=== PATIENT | female | born 1945 | race Caucasian/White ===

== ENCOUNTER 2020-05-05 08:56 | Outpatient (REF) | payer MEDICARE, SELFPAY ==
--- NOTE | 2020-05-05 09:01 | MM_ITS ---
EXAMINATION: MM SCREENING DIGITAL BREAST TOMOSYNTHESIS, BILATERAL CLINICAL INFORMATION: Screening. Asymptomatic. The lifetime risk of breast cancer based on the Tyrer-Cuzick Model is 4%. COMPARISON: Mammography: 01/31/2019, 01/04/2018, 01/02/2017 TECHNIQUE: Digital breast tomosynthesis is performed in both the craniocaudal and mediolateral oblique views along with computer-aided detection (CAD). Synthesized 2D images are generated from the tomosynthesis. Additional right CC view is provided. FINDINGS: There are scattered areas of fibroglandular density (ACR BI-RADS breast composition Category b). Parenchymal pattern is similar to prior exams and there is no developing density or interval mass or architectural abnormality. Again, there are scattered bilateral benign round and rim calcifications. The axilla and skin contours are unremarkable. The left breast has increased focal grouped calcifications mid upper outer quadrant when compared with prior study. Patient will be recalled for additional magnification views to fully characterize. MM/MM tomosynthesis screening BI IMPRESSION: 1. Left: Increased grouped calcifications mid upper outer quadrant. 2. Right: No mammographic evidence of malignancy. ASSESSMENT: BI-RADS 0: Incomplete - Need Additional Imaging Evaluation RECOMMENDATION: 1. Additional views of the left breast (magnification CC, magnification ML). 2. Radiology department staff will contact the patient for additional imaging. This patient's information was entered into a reminder system with a target due date for their next mammogram.
== END 2020-05-05 08:57 | disposition home or self-care (01) ==
LOC: HO.MAMMO 08:56
PROVIDERS: PCP Internal Medicine; Visit Provider Internal Medicine
DX: Z12.31 Encounter for screening mammogram for malignant neoplasm of breast (principal)
CPT/HCPCS: 77063; 77067

== ENCOUNTER 2020-05-28 10:59 | Outpatient (REF) | payer MEDICARE, SELFPAY ==
--- NOTE | 2020-05-28 | MM_ITS ---
EXAMINATION: MM DIAGNOSTIC DIGITAL MAMMOGRAPHY, LEFT CLINICAL INFORMATION: Left breast calcifications. COMPARISON: Mammography: 05/05/2020 and studies dating back to 05/20/2011. TECHNIQUE: Digital mammography is performed in the following views: Spot magnification craniocaudal and 90-degree mediolateral views. FINDINGS: There are scattered areas of fibroglandular density (ACR BI-RADS breast composition Category b). Within the upper outer aspect of the left breast, approximately 8 cm from the nipple, there is an indeterminate grouping of increasing calcifications for which stereotactic core biopsy is recommended. Results are discussed with the patient at time of visit. Breast Center navigator called above recommendation to referring provider's office. MM/MM added views LT IMPRESSION: Indeterminate calcifications upper outer aspect of the left breast for which stereotactic core biopsy is recommended. ASSESSMENT: BI-RADS 4: Suspicious RECOMMENDATION: Stereotactic core biopsy left breast calcifications.
== END 2020-05-28 11:00 | disposition home or self-care (01) ==
LOC: HO.MAMMO 10:59
PROVIDERS: Visit Provider Internal Medicine
DX: R92.1 Mammographic calcification found on diagnostic imaging of breast (principal)
CPT/HCPCS: 77065

== ENCOUNTER 2020-06-09 07:55 | Outpatient (REF) | payer MEDICARE, SELFPAY ==
--- NOTE | 2020-06-09 07:59 | MM_ITS ---
EXAMINATION: STEREOTACTIC TOMOSYNTHESIS-GUIDED VACUUM-ASSISTED BREAST BIOPSY, LEFT SPECIMEN RADIOGRAPH, LEFT POST PROCEDURE DIGITAL MAMMOGRAM, LEFT CLINICAL INFORMATION: Grouped coarse heterogeneous calcifications posterior upper outer left breast. COMPARISON: Mammography 05/05/2020, 05/28/2020. TECHNIQUE/PROCEDURE: Informed consent was obtained from the patient after discussion of the benefits, risks, and alternatives to biopsy today. Patient appeared to understand. Gave opportunity for questions. Patient signed consent form. BIOPSY TABLE: [employer]one Biopsy System. LESION: Heterogeneous coarse calcifications posterior upper outer left breast. LOCAL ANESTHESIA: 6 mL 1% lidocaine; 10 mL 1% lidocaine with epinephrine. DERMATOTOMY: Single skin malcolm dermatotomy performed. NEEDLE: [employer] 9-gauge vacuum assisted core biopsy device. APPROACH: lateral medial. TARGETING: Digital breast tomosynthesis used for targeting. CORES: 6. CLIP: [place] [employer] T-shaped marker. SPECIMEN RADIOGRAPH: Specimen radiograph is taken in separate room using digital mammography. The index calcifications are in the excised cores. There are numerous calcifications in the cores. POST PROCEDURE UNILATERAL DIGITAL MAMMOGRAM: The post biopsy mammogram is performed in separate room using separate digital mammography equipment from the biopsy procedure. CC and ML views are obtained. There are scattered areas of fibroglandular density (breast composition category: b). The clip marker is in position on the ML view and likely 1 cm deep to the biopsy cavity on CC view. One remaining calcification is seen in area biopsy cavity. The patient tolerated the procedure well. No immediate complications. Home instructions reviewed with the patient. Final pathology results are pending. MM/MM stereotactic biopsy LT IMPRESSION: 1. Digital tomosynthesis-guided core biopsy left breast with clip placement. 2. Specimen radiograph taken and post procedure mammogram. Biopsy clip marker is 1 cm deep to the biopsy cavity on CC view. 3. Final pathology results pending. An addendum report will be issued.
== END 2020-06-09 07:56 | disposition home or self-care (01) ==
LOC: HO.MAMMO 07:55
PROVIDERS: PCP Internal Medicine; Visit Provider Internal Medicine
DX: R92.0 Mammographic microcalcification found on diagnostic imaging of breast (principal)
CPT/HCPCS: 19081; 88305

== ENCOUNTER 2020-11-26 13:00 | Outpatient (REF) | payer MEDICARE, SELFPAY ==
--- NOTE | ~2020-11-26 | MM_ITS ---
EXAMINATION: MM DIAGNOSTIC DIGITAL BREAST TOMOSYNTHESIS, LEFT CLINICAL INFORMATION: Benign left stereotactic biopsy 06/09/2020 (Benign breast parenchyma with fibrocystic changes, fibroadenomatoid change, and scattered coarse calcifications. Negative for atypia, hyperplasia, and carcinoma). The lifetime risk of breast cancer based on the Tyrer-Cuzick Model is 4%. COMPARISON: Mammography: 06/09/2020, 05/28/2020, 05/05/2020 TECHNIQUE: Digital breast tomosynthesis is performed in both the craniocaudal and mediolateral oblique views along with computer-aided detection (CAD). Synthesized 2D images are generated from the tomosynthesis. FINDINGS: There are scattered areas of fibroglandular density (ACR BI-RADS breast composition Category b). There are no significant masses, abnormal calcifications, or other abnormalities. There is biopsy clip marker mid upper outer left breast. No residual grouped calcifications. There are scattered background benign round calcifications of the left breast again noted. Results are provided to the patient at time of visit by the technologist. MM/MM tomosynthesis diagnostic LT IMPRESSION: No mammographic evidence of malignancy. ASSESSMENT: BI-RADS 2: Benign RECOMMENDATION: Routine annual mammography screening. This patient's information was entered into a reminder system with a target due date for their next mammogram.
== END 2020-11-26 13:01 | disposition home or self-care (01) ==
LOC: HO.MAMMO 13:00
PROVIDERS: PCP Internal Medicine; Visit Provider Internal Medicine
DX: R92.1 Mammographic calcification found on diagnostic imaging of breast (principal)
CPT/HCPCS: 77061; 77065

== ENCOUNTER 2021-01-21 09:51 | Outpatient (REF) | payer MEDICARE, SELFPAY ==
--- NOTE | 2021-01-21 10:01 | EMG_ITS ---
Bilateral tibial and peroneal motor studies were performed. Bilateral superficial peroneal and sural sensory studies were performed. Tibial H reflexes were obtained and paraspinal muscles were tested. 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 MD KEVIN Burgos/CHRISTOPHERL / [id number]
== END 2021-01-21 09:52 | disposition home or self-care (01) ==
LOC: HO.NEURO 09:51
PROVIDERS: Visit Provider Internal Medicine
DX: R20.2 Paresthesia of skin (principal)
CPT/HCPCS: 95886; 95911

== ENCOUNTER 2022-07-15 08:50 | Outpatient (REF) | payer MEDICARE, SELFPAY ==
--- NOTE | ~2022-07-15 | MM_ITS ---
EXAMINATION: MM SCREENING DIGITAL BREAST TOMOSYNTHESIS, BILATERAL CLINICAL INFORMATION: Screening. Asymptomatic. Benign left stereotactic biopsy 06/09/2020 (benign breast parenchyma with fibrocystic changes, fibroadenomatoid change, and scattered coarse calcifications. Negative for atypia, hyperplasia, and carcinoma). The lifetime risk of breast cancer based on the Tyrer-Cuzick Model is 3%. COMPARISON: Mammography: 11/26/2020, 06/09/2020, 05/28/2020, 05/05/2020, 01/31/2019 TECHNIQUE: Digital breast tomosynthesis is performed in both the craniocaudal and mediolateral oblique views along with computer-aided detection (CAD). Synthesized 2D images are generated from the tomosynthesis. FINDINGS: There are scattered areas of fibroglandular density (ACR BI-RADS breast composition Category b). There are no significant masses, abnormal calcifications, or other abnormalities. There is biopsy clip marker mid upper outer left breast. The grouped calcifications in this area are no longer demonstrated. There are other scattered benign isolated round and rim calcifications breast again noted. The axilla and skin contours are unremarkable. MM/MM tomosynthesis screening BI IMPRESSION: No mammographic evidence of malignancy. ASSESSMENT: BI-RADS 2: Benign RECOMMENDATION: Routine annual mammography screening. This patient's information was entered into a reminder system with a target due date for their next mammogram.
== END 2022-07-15 08:51 | disposition home or self-care (01) ==
LOC: HO.MAMMO 08:50
PROVIDERS: PCP Internal Medicine; Visit Provider Internal Medicine
DX: Z12.31 Encounter for screening mammogram for malignant neoplasm of breast (principal)
CPT/HCPCS: 77063; 77067

== ENCOUNTER 2023-07-19 08:55 | Outpatient (REF) | payer MEDICARE, SELFPAY ==
--- NOTE | ~2023-07-19 | MM_ITS ---
EXAMINATION: MM SCREENING DIGITAL BREAST TOMOSYNTHESIS, BILATERAL CLINICAL INFORMATION: Screening. Asymptomatic. COMPARISON: Mammography: This study is compared with prior exams dating back to 2019. TECHNIQUE: Digital breast tomosynthesis is performed in both the craniocaudal and mediolateral oblique views along with computer-aided detection (CAD). Synthesized 2D images are generated from the tomosynthesis. FINDINGS: There are scattered areas of fibroglandular density (ACR BI-RADS breast composition Category b). There are no significant masses, abnormal calcifications, or other abnormalities. There is a tissue marker in the upper outer quadrant of the left breast from prior benign percutaneous biopsy. MM/MM tomosynthesis screening BI IMPRESSION: No mammographic evidence of malignancy. ASSESSMENT: BI-RADS BI-RADS 2 - Benign Findings RECOMMENDATION: Routine annual mammography screening. 1 year F/U This examination should not preclude the clinical evaluation of a suspicious palpable abnormality. This patient's information was entered into a reminder system with a target due date for their next mammogram.
--- NOTE | ~2023-07-19 | MM_ITS ---
EXAMINATION: BONE DENSITOMETRY CLINICAL INDICATION: Osteopenia. COMPARISON: Previous BD dated 01/26/2016 and baseline BD dated 05/19/2008. TECHNIQUE: Using a [employer] DXA System (software version: 13.1) manufactured by [employer], dual-energy x-ray absorptiometry was performed of the lumbar spine and left forearm radius 33%. The images are of good technical quality. Summary results are attached. FINDINGS: AP SPINE L1-L4: Current: BMD 0.882 g/cm2, Z-score -0.8, T-score -2.5, osteoporosis, 10.5% decrease from previous, 0.6% decrease from baseline (<5% change is not significant). Prior: BMD 0.985 g/cm2. Baseline: BMD 0.887 g/cm2. LEFT FOREARM RADIUS 33%: BMD 0.567 g/cm2, Z-score -1.1, T-score -3.5, osteoporosis. IDENTIFIED RISK FACTORS: Menopause, height loss, history of fracture (adult), hysterectomy, left oophorectomy. HISTORY OF FRACTURE: Femur/hip. MEDICATIONS: None listed. MM/XR DEXA axial skeleton IMPRESSION: 1. DIAGNOSIS: Severe osteoporosis based on the lowest T-score value of -3.5 in the forearm radius 33% and history of fracture of femur/hip applying World Health Organization criteria. 2. 10-YEAR FRACTURE RISK PREDICTION, FRAX: According to the guidelines, FRAX calculation should only be performed on patients in the osteopenia bone density category. Therefore, FRAX was not performed on this patient. 3. Treatment Recommendations: NOF guidelines recommend consideration for treatment in postmenopausal women and men age 50 and older presenting with the following: -A hip or vertebral (clinical or morphometric) fracture. -T-score less than or equal to -2.5 at the femoral neck or spine after appropriate evaluation to exclude secondary causes. -Low bone mass at the hip or spine and a 10-year fracture probability by FRAX of greater than or equal to 3% for hip fracture or greater than or equal to 20% for major osteoporotic fracture based on the [place] adapted WHO algorithm. 4. Other Recommendations: All treatment decisions require clinical judgment and consideration of individual patient factors, including patient preferences, comorbidities, previous drug use, risk factors not captured in the FRAX model (e.g. frailty, falls, vitamin D deficiency, increased bone turnover, interval significant decline in bone density) and possible under or overestimation of fracture risk by FRAX. Additional medical evaluation for secondary cause of low bone mineral density may be appropriate. FUTURE SCAN RECOMMENDATION: People with diagnosed cases of osteoporosis or at high risk for fracture should have regular bone mineral density tests. For patients eligible for Medicare, routine testing is allowed once every 2 years. The testing frequency can be increased to one year for patients who have rapidly progressing disease, those who are receiving or discontinuing medical therapy to restore bone mass, or have additional risk factors.
== END 2023-07-19 08:56 | disposition home or self-care (01) ==
LOC: HO.MAMMO 08:55
PROVIDERS: PCP Internal Medicine; Visit Provider Internal Medicine
DX: Z12.31 Encounter for screening mammogram for malignant neoplasm of breast (principal); Z13.820 Encounter for screening for osteoporosis; Z78.0 Asymptomatic menopausal state; M85.80 Other specified disorders of bone density and structure, unspecified site
CPT/HCPCS: 77063; 77067; 77080

== ENCOUNTER → 2023-07-19 09:30 | Outpatient (BNV) | payer MEDICARE, SELFPAY | PROVIDERS: PCP Internal Medicine; Visit Provider Radiology Diagnostic Radiology | DX: Z12.31 Encounter for screening mammogram for malignant neoplasm of breast (principal) | CPT/HCPCS: 77063; 77067 ==

== ENCOUNTER 2023-11-21 08:06 | Day surgery (SDC) | payer MEDICARE, SELFPAY ==
[2023-11-21 09:02] VITALS: BP 151/59; PULSE 64; RESP 18; TEMP 36.3; O2SAT 96; BMI 25.0
[2023-11-21] MEDS: Lactated Ringers 1,000 ML 50 ML IVCONT (09:08)
--- NOTE | 2023-11-21 09:22 | P.CONAN_ITS ---
HPI - Anesthesia Eval Consult details Narrative: 78 yo female patient for Colonoscopy PMF Active Problems Active Problems: HTN Hypercholesterolaemia Hypothyroidism Lumbar Spinal stenosis LE neuropathy Depression Environmental allergies IBS Past Medical History Medical History (Updated 11/21/23 @ 09:30 by Doris Thurston RN) Hx of fracture of femur Femur fracture Depression Anxiety Hypertension Spinal stenosis Family History Family history of problems with anesthesia: No Surgical History Surgical History (Updated 11/21/23 @ 09:29 by Doris Thurston RN) H/O: hysterectomy S/P appy History of Problems with Anesthesia: No Social History Social History Patient Tobacco Use Status: Former Tobacco user Use of substances other than those prescribed or required for medical reasons: No Are you DNR?: No Advance Directives: No Advance Directives Information Provided: Yes Meds Allergies Allergy/AdvReac Type Severity Reaction Status Date / Time acetaminophen [From Percocet] Allergy Intermediate Agitated Verified 11/21/23 09:11 oxycodone [From Percocet] Allergy Intermediate Agitated Verified 11/21/23 09:11 Active Medications: Current Medications Lactated Ringer's (Lr) 1,000 mls @ 50 mls/hr IVCONT .Q20H SASHA Last Admin: 11/21/23 09:08 Dose: 50 mls/hr Home Medications ?Medication ?Instructions ?Recorded ?Confirmed ?Last Taken ?Type amlodipine 10 mg tablet 10 mg PO DAILY 11/20/23 11/20/23 Unknown History atorvastatin 40 mg tablet 40 mg PO DAILY 11/20/23 11/20/23 Unknown History cholecalciferol (vitamin D3) 25 25 mcg PO DAILY 11/20/23 11/20/23 Unknown History mcg (1,000 unit) tablet dicyclomine 20 mg tablet 20 mg PO QID 11/20/23 11/20/23 Unknown History fluticasone propionate 50 intranasal 11/20/23 Unknown History mcg/actuation nasal spray,suspension gabapentin 300 mg capsule 300 mg PO TID 11/20/23 11/20/23 Unknown History hydralazine 10 mg tablet 10 mg PO BID 11/20/23 11/20/23 11/21/23 History levothyroxine 50 mcg tablet 50 mcg PO DAILY 11/20/23 11/20/23 Unknown History lisinopril 40 mg tablet 40 mg PO DAILY 11/20/23 11/20/23 Unknown History metoprolol succinate 100 mg 100 mg PO DAILY 11/20/23 11/20/23 Unknown History tablet,extended release 24 hr sertraline 50 mg tablet 50 mg PO DAILY 11/20/23 11/20/23 Unknown History Exam Height,Weight and Vital Signs: Height 5 ft 5 in Weight 68.039 kg Last Vital Signs Temp 97.4 F 11/21/23 09:02 Pulse 64 11/21/23 09:02 Resp 18 11/21/23 09:02 BP 151/59 H 11/21/23 09:02 Pulse Ox 96 11/21/23 09:02 O2 Del Method Room Air 11/21/23 09:02 Airway Mallampati Class: II TM Dist: >3cm Neck ROM: Full (A little sore from positioning) Partial: Upper (Left at home -single tooth denture top right back) Loose/Missing/Broken Teeth: Yes (Denies broken or loose teeth) Heart: RRR Lungs: CTAB Assessment and Plan Assessment Anesthesia Assessment: Anesthesia Plan Discussed and Chart Reviewed Final Anesthetic Review Family History of Problems with Anesthesia: No History of Problems with Anesthesia: No NPO: Yes ASA Class: II Final Preanesthetic Review: No Changes in Pt Med Stat, Meds/Allgs Chart Reviewed , Consent Obtained/Reviewed and Anes Risks/Benef Reviewed Patient Risk: Low Procedure Risk: Low Assessment/Block/Sedation in SS: Assess/Block/Sedation-SS Anesthetic Plan Anesthetic Plan: GA and TIVA Disposition: Standard PACU
--- NOTE | 2023-11-21 09:26 | MHC.SHP ---
Pre-Procedural Eval Section A - 24 Hr Update-Section A only Date of Service: 11/21/23 The patient is an INPATIENT: No Changes since office visit: No Cold of Flu in the past 2 weeks, No New Medical Problems, No Changes in Medication and No Patient answered all questions The patient has been examined within 24 hours of the surgical procedure. The History & Physical has been completed within 30 days and I have reviewed it.: Yes Section B - Complete if H&P > 30 days Chief Complaint: screening Allergies: Allergies Allergy/AdvReac Type Severity Reaction Status Date / Time acetaminophen [From Percocet] Allergy Intermediate Agitated Verified 11/21/23 09:11 oxycodone [From Percocet] Allergy Intermediate Agitated Verified 11/21/23 09:11 Plan I have reviewed the history and physical and performed a pertinent physical examination on my patient. No changes have occurred unless specified. Time Spent With Patient Time: Total time managing care of this patient today ____ minutes.
[2023-11-21 10:06] VITALS: BP 112/52; PULSE 78; RESP 16; TEMP 37; O2SAT 97
[2023-11-21 10:21] VITALS: BP 112/52; PULSE 68; RESP 16; TEMP 37; O2SAT 98
--- NOTE | 2023-11-22 10:13 | OP_ITS ---
DATE OF SERVICE: 11/21/2023 SURGEON: Polo Richards MD INDICATIONS: Colon cancer screening and prior history of adenomatous colon polyps. PREOPERATIVE DIAGNOSIS: POSTOPERATIVE DIAGNOSIS: PROCEDURE PERFORMED: Colonoscopy to the terminal ileum with biopsy. ESTIMATED BLOOD LOSS: COMPLICATIONS: ANESTHESIA: Monitored anesthesia care. ASSISTANTS: SPECIMENS: DESCRIPTION OF PROCEDURE: A history and physical was performed. The risks and benefits of the procedure were explained to the patient and informed consent was obtained. The patient was placed in the left lateral decubitus position. A digital rectal exam was performed and was found to be normal. The Olympus pediatric video colonoscope was introduced into the rectum and advanced to the cecum. The cecum was identified by transillumination, palpation, and identification of ileocecal valve. Examination was performed and the scope was removed. She tolerated the procedure well and was returned to recovery area in stable condition. FINDINGS: The terminal ileum was briefly glimpsed. This appeared normal. The visualized colonic mucosa was normal. There were 2 polyps removed with biopsy forceps. Both measured less than 5 mm. These were located at 70 cm and 65 cm. No other polyps were identified. There was moderate sigmoid diverticulosis. Retroflexed examination showed small internal hemorrhoids and hypertrophic anal papillae. The anal sphincter was slightly stenotic. IMPRESSION: Colon polyps. RECOMMENDATION: Follow up the biopsy results. MD SERVANDO Vargas/CHRISTOPHERL / [id number]
== END 2023-11-21 11:34 | disposition home or self-care (01) ==
PROVIDERS: PCP Internal Medicine; Visit Provider Internal Medicine Gastroenterology
PROC: 0DJD8ZZ Inspection of Lower Intestinal Tract, Via Natural or Artificial Opening Endoscopic (ICD-10-PCS; CPT 45378; principal; 2023-11-21 09:50)
DX: Z12.11 Encounter for screening for malignant neoplasm of colon (principal); D12.4 Benign neoplasm of descending colon; K57.30 Diverticulosis of large intestine without perforation or abscess without bleeding; K62.4 Stenosis of anus and rectum; K62.89 Other specified diseases of anus and rectum; K64.8 Other hemorrhoids; Z86.010 Personal history of colon polyps; I10 Essential (primary) hypertension; E78.5 Hyperlipidemia, unspecified; K58.9 Irritable bowel syndrome, unspecified; Z87.891 Personal history of nicotine dependence; Z79.02 Long term (current) use of antithrombotics/antiplatelets; Z79.899 Other long term (current) drug therapy
CPT/HCPCS: 45380; 88305; J2704

== ENCOUNTER 2025-04-16 12:20 | Outpatient (REF) | payer MEDICARE, SELFPAY ==
--- NOTE | ~2025-04-16 | MM_ITS ---
EXAMINATION: MM SCREENING DIGITAL BREAST TOMOSYNTHESIS, BILATERAL CLINICAL INFORMATION: Screening. Asymptomatic. Left stereotactic needle core biopsy on June 09, 2020 showed benign breast parenchyma with fibrocystic changes, fibroadenomatous change and scattered coarse calcifications (T-shaped marker). COMPARISON: Comparison made to multiple prior, most recent July 19, 2023, and most remote January 31, 2019. TECHNIQUE: Digital breast tomosynthesis is performed in mediolateral oblique and craniocaudal views along with computer-aided detection (CAD). Synthesized 2D images are generated from the tomosynthesis. FINDINGS: BREAST COMPOSITION: There are scattered areas of fibroglandular density. RIGHT BREAST: No significant masses, suspicious calcifications or other abnormalities are seen. LEFT BREAST: Tissue marker from previous needle core biopsy. No significant masses, suspicious calcifications or other abnormalities are seen. MM/MM tomosynthesis screening BI IMPRESSION: BILATERAL BREASTS: Benign, no mammographic evidence of malignancy. Normal interval follow-up is recommended in 12 months. ASSESSMENT: BI-RADS: Category 2: Benign RECOMMENDATION: Routine annual mammography screening. FOLLOW-UP: 1 year F/U This examination should not preclude the clinical evaluation of a suspicious palpable abnormality. This patient's information was entered into a reminder system with a target due date for their next mammogram. Electronically signed by: Rod Cameron MD 04/18/2025 05:15 PM [facility]
--- OUTSIDE RECORDS SUMMARY | 2025-04-16 15:24 | XMS_ITS | Clinical Summary ---
Author Organization 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 08/28/19 16 Active aspirin 81 mg tablet Take 81 mg by mouth 1 (one) time each day. 08/28/19 16 Active atorvastatin (LIPITOR) 40 mg tablet Take by mouth at bedtime. 08/28/19 16 Active clobetasoL (TEMOVATE) 0.05 % cream if needed. 08/21/19 25 Active dicyclomine (BENTYL) 20 mg tablet 1 (one) time each day. 01/04/20 25 Active fluticasone propionate (FLONASE) 50 mcg/actuation nasal spray if needed. Active gabapentin (NEURONTIN) 300 mg capsule Take by mouth at bedtime. 01/25/20 23 Active hydrALAZINE (APRESOLINE) 10 mg tablet 2 (two) times a day. 01/25/20 23 Active levothyroxine (SYNTHROID, LEVOTHROID) 50 mcg tablet Take by mouth 1 (one) time each day before breakfast. 03/14/20 16 Active lisinopril (PRINIVIL,ZESTRIL) 40 mg tablet Take by mouth 1 (one) time each day. 08/28/19 16 Active metoprolol succinate (TOPROL-XL) 100 mg 24 hr tablet Take by mouth 1 (one) time each day. Active ondansetron ODT (ZOFRAN-ODT) 4 mg disintegrating tablet TAKE 1 TABLET BY MOUTH ON THE TONGUE AND ALLOW TO DISSOLVE TWICE DAILY 07/04/19 25 Active prednisoLONE acetate (PRED FORTE) 1 % ophthalmic suspension 3 X DAILY 02/22/20 25 Active sertraline (ZOLOFT) 50 mg tablet Take by mouth 1 (one) time each day. 01/25/20 Active vit A/vit C/vit E/zinc/copper (PRESERVISION AREDS ORAL) Take 1 tablet by mouth 1 (one) time each day. Active cholecalciferol (VITAMIN D-3) 25 mcg (1,000 unit) tablet Take by mouth. 09/14/19 025 Discontinued methocarbamoL (ROBAXIN) 750 mg tablet Take 1 tablet (750 mg total) by mouth 2 (two) times a day. 01/29/20 025 Discontinued traMADoL (ULTRAM) 50 mg tablet Take 1 tablet (50 mg total) by mouth every 6 (six) hours if needed for severe pain for up to 25 doses. Max Daily Amount: 200 mg 25 tablet 03/13/20 025 Discontinued Active Problems Problem Noted Date Diagnosed Date Age-related osteoporosis wit h current pathological fracture, vertebra(e), initial encounter for fracture ([facility] V24, [facility] V28) 02/27/2025 Spinal stenosis, lumbar jhon on without neurogenic claudication 02/27/2025 Spinal stenosis of lumbar region with radiculopa thy 02/25/2025 Assessment & Plan (02/25/2025 4:26 PM EDT): While patient was here to go over the MRI for her L1 compression fracture, we also addressed other findings on MRI, including her L4-5 stenosis. Patient has history of right radicular leg pain for at least a couple years, has been going for regular lumbar injections at pain management with Dr. Osman, it sounds like approximately 3-4 times a year. She states pain radiates to the anterior lateral thigh, down the lateral leg into the foot. The injections do help her, but she can feel when it is starting to wear off and the right leg symptoms will return. She does not describe classic neurogenic claudication with walking. She denies any left leg symptoms. Patient states the right leg pain has been affecting her life as well, requiring regular cortisone injections, given that she has L4-5 stenosis she would like to see if there is potential surgical treatment for this as well. Dr. Cid states she could offer her right L4-5 minimally invasive decompression to see if that helps her right lateral leg pain. We would do that surgery at the same time she is under general anesthesia for her L1 kyphoplasty. On her MRI she has a right T12-L1 disc extrusion that has migrated behind the L1 body, is in the lateral recess, it is not causing central stenosis, she is not describing symptoms classic for T12 or L1 distribution, likely not contributing to her symptoms. She also notes that every time she gets a lumbar injection, it will temporarily help the right leg pain, we called pain management to get a copy of their note faxed over to see which level they are doing the cortisone injection. They would like to proceed with the right L4-5 minimally invasive decompression. Compression fracture of L1 l umbar vertebra ([facility] V24, [facility] V28) 02/25/2025 Assessment & Plan (03/25/2025 2:25 PM EST): Patient is 12 days s/p L1 kyphoplasty and right L4-5 MIS decompression. She has been seeing improvements postop, she states every day gets a little better but she still notes that her stamina is short-lived. She has been trying to increase her activities, she is walking around more, doing more around the house, her states he sees her walking more without a walker or cane now. However when she has been active for a bit she tires out. She has not had any wound drainage, fevers, sweats chills. About this time she would start to have return of onset of her right leg pain, actually had an appointment with Dr. Osman next month for another injection, so far has not seen any of her typical right leg pain. Ms. Rizo is doing well postop, has a 6-week follow-up with Dr. Cid. All postop questions answered. At this point she is not having any of her typical right leg pain, will likely be able to cancel her appointment with Dr. Osman next month. She will call with any concerns or questions. I did recommend she go to physical therapy for core strengthening, improve her stamina, we talked about the [employer] treadmill, also option for aquatic PT. Prescription for physical therapy in office given to patient. Assessment & Plan (02/25/2025 4:27 PM EDT): Patient was referred for acute back pain that started 5 weeks ago, patient states initially back pain was 12/10, radiated across both sides of her low back, now seems to have settled more so to the right side of her low back and a bit toward the hip. She was given 1 week of oral steroids which did not help, she tried muscle relaxers which did not help. When she first gets up in the morning her back pain is not severe, but with activity as the day is going on it gets significant. Patient had MRI lumbar spine 02/17/2025 [facility] that shows acute L1 superior endplate compression fracture, edema noted on [facility] imaging. She has multilevel degenerative changes, mild spondylolisthesis L2-3, L1-2, L4-5, moderate L4-5 central stenosis with lateral recess stenosis bilaterally, multilevel DDD. We reviewed the MRI images together on the computer. Dr. Cid reviewed the MRI today as well. Ms. Rizo has significant back pain with activity throughout the day, minimal improvement over the last 5 weeks, currently rates her pain 8-9/10 daily. She is a very active person, this is affecting her daily activities, she would like to pursue treatment. I reviewed MRI with Dr. Cid, she states she could offer patient L1 kyphoplasty, patient would like to proceed. We discussed the procedure in detail, Hibiclens body wash and instructions given to patient, she is not on any blood thinners or GLP-1's that need to be stopped preop. Hemoglobin A1c 5.7 in September 2024. They would like to first discuss surgery with Dr. Young, but likely will proceed with surgery, I asked them to call with any additional questions or concerns. I did ask patient to let us know if her acute back pain improves over the next couple weeks prior to surgery, we would not recommend doing the kyphoplasty if her back pain is better. All questions answered. Encounters Date Type Department Care Team Description 03/25/2025 1:30 PM EST Office Visit Neurosurgery [facility] [address] [phone] Mabel Martin PA Spinal stenosis of lumbar region with radiculopathy (Primary Dx); Compression fracture of L1 vertebra with routine healing, subsequent encounter 03/13/2025 12:34 PM EDT Anesthesia Event [facility] OR [address] [place] [phone] Jakob Maldonado DO Lema Alava, Steven, SRNA 03/13/2025 12:00 PM EDT - 03/13/2025 2:30 PM EDT Surgery [facility] OR [address] [place] [phone] Ade Cid MD L1 kyphoplasty & Rt L4-5 decompression /metrx [72996 (CPT ) +1 more] 03/13/2025 10:14 AM EDT - 03/13/2025 7:30 PM EDT Hospital Encounter [facility] OR [address] [place] [phone] Ade Cid MD Pain; Age-related osteoporosis with current pathological fracture, vertebra(e), initial encounter for fracture (CMS/HCC V24, [facility] V28); Spinal stenosis, lumbar region without neurogenic claudication Discharge Disposition: Home or Self Care 02/25/2025 1:30 PM EDT Consult Neurosurgery [facility] [address] [phone] Mabel Martin PA Compression fracture of L1 vertebra, initial encounter (CMS/HCC V24, [facility] V28) (Primary Dx); Spinal stenosis of lumbar region with radiculopathy 02/17/2025 7:34 AM EDT - 02/17/2025 11:59 PM EDT Hospital Encounter [facility] [address] [place] [phone] Lumbar pain Discharge Disposition: Home or Self Care from Last 3 Months Surgical History Surgery Date Site/Laterality Comments FEMUR SURGERY 05/22/2014 - 05/21/2015 Right Femur fracture, shae in femur FEMUR SURGERY 05/22/2022 - 05/21/2023 Left CORNEAL TRANSPLANT 06/22/2024 - 07/19/2024 COLONOSCOPY HYSTERECTOMY APPENDECTOMY BACK SURGERY 03/13/2025 L1 kyphoplasty and right L4-5 decompression, Dr. Cid Medical History Medical History Date Comments Anxiety Asthma Arthritis HTN (hypertension) High cholesterol IBS (irritable bowel syndrome) Macular degeneration Was getting monthly injections x 4 years. History of strep eye infection causing blindness around November 2023, led to corneal transplant, multiple surgeries. Retina unaffected. Legally blind in left eye, a s defined in [place] Shortness of breath Fractures Joint pain Multiple closed fractures of metatarsal bone BILATERAL Hiatal hernia Social History Tobacco Use Types Packs/Day Years Used Date Smoking Tobacco: Former Cigarettes 0 1 1 - 1960 Smokeless Tobacco: Never Tobacco Cessation:Counseling Given: Not Answered Comments:Quit smoking 1971 Alcohol Use Standard Drinks/Week Comments Not Currently 0 (1 standard drink = 0.6 oz pur e alcohol) Interpersonal Safety Answer Date Record ed Physical Abuse Unrecognized value 03/13/2025 Verbal Abuse Unrecognized value 03/13/2025 Comments No Sex and Gender Information Value Date Recorded Sex Assigned at Not on file Legal Sex Female 10:19 PM EST Gender Identity Not on file Sexual Orientation Not on file Obstetrics History Last Filed Vital Signs Vital Sign Reading Time Taken Comments Blood Pressure 135/67 03/13/2025 6:41 PM EDT Pulse 95 03/13/2025 6:41 PM EDT Temperature 36.4 C (97.6 F) 03/13/2025 6:41 PM EDT Respiratory Rate 18 03/13/2025 6:41 PM EDT Oxygen Saturation 95% 03/13/2025 6:41 PM EDT Inhaled Oxygen Concentration - - Weight 68 kg (150 lb) 03/25/2025 1:23 PM EST Height 167.6 cm (5' 6 ) 03/25/2025 1:23 PM EST Body Mass Index 24.21 03/25/2025 1:23 PM EST Plan of Treatment Upcoming Encounters Date Type Department Care Team (Late st Contact Info) Description 05/09/2025 11:45 AM EST Office Visit Neurosurgery [place] [address] [place] [phone] Ade Cid MD [address] [place] [address] Health Maintenance Due Date Last Done Comments Zoster Vaccines (1 of 2) 02/21/1996 RSV Immunization Adult Patients (1 - 1-dose 75+ series) 2021 DTaP,Tdap,and Td Vaccines (2 - Td or Tdap) 12/13/2022 12/13/2012 Depression Screening 05/22/2024 COVID-19 Vaccine ( season) 2025 03/05/2024, 04/10/2023, 02/25/2022, Additional history exists Influenza Vaccine (#1) 2025 , 02/21/2023, 03/14/2022, Additional history exists Cholesterol Screening (Lipid Panel) 02/13/2025 Hepatitis C Screening 02/13/2025 Medicare Annual Wellness Visit 02/13/2025 Osteoporosis Screening (Bone Density Screening) 02/13/2025 Social Influencers of Health Screening 02/13/2025 Hypertension/CHF/CAD Annual BMP Blood Test 02/17/2025 Falls Risk Assessment 03/13/2026 03/13/2025 Pneumococcal Vaccine: 50+ Years Completed 04/03/2024, 08/30/2015 HIB Vaccines Aged Out No longer eligi ble based on patient's age to complete this topic HPV Vaccines Aged Out No longer eligi ble based on patient's age to complete this topic Hepatitis A Vaccines Aged Out No long er eligible based on patient's age to complete this topic Hepatitis B Vaccines Aged Out No long er eligible based on patient's age to complete this topic IPV Vaccines Aged Out No longer eligi ble based on patient's age to complete this topic MMR Vaccines Aged Out No longer eligi ble based on patient's age to complete this topic Meningococcal ACWY Vaccine Aged Out N o longer eligible based on patient's age to complete this topic Meningococcal B Vaccine Aged Out No l onger eligible based on patient's age to complete this topic RSV Immunization Patients Under 20 months Aged Out No longer eligible based on patient's age to complete this topic Varicella Vaccines Aged Out No longer eligible based on patient's age to complete this topic Medical Devices Implanted Type Area Rug Drying Machine Operator Device Identifier Shelf Expiration Date Model / Serial / Lot Kyphx Hv-R Bone Cement Kyphon Mixer Pack - Sn/A - [id number] Implanted:Qty : 1 on 03/13/2025 by Ade Cid MD at [facility] Bone Cement N/A: Spine Lumbar [employer] KYPHON 09/19/2027 C01B / N/A / [id number] Cement Bone Kyphon Activos 10 - Sn/A - [id number] Implanted:Qty : 1 on 03/13/2025 by Ade Cid MD at [facility] Bone Cement N/A: Spine Lumbar [employer] KYPHON 09/19/2027 [id number] / N/A / [id number] Powder Surgifoam Absorb Gel - /A - [id number] Implanted:Qty : 1 on 03/13/2025 by Ade Cid MD at [facility] Osteobiologics N/A: Spine Lumbar [employer] [id number] 09/12/20261977 / N/A / [id number] Procedures Procedure Name Priority Date/Time Associated Diagnosis Comments XR LUMBAR SPINE 2-3 VIEWS Routine 03/13/2025 2:36 PM EDT Pain TISSUE EXAM Routine 03/13/2025 1:34 PM EDT Age-related osteoporosis with current pathological fracture, vertebra(e), initial encounter for fracture ([facility] V24, [facility] V28) Spinal stenosis, lumbar region without neurogenic claudication TH AN ENDOTRACHEAL(NO CHARGE) Routine 03/13/2025 1:14 PM EDT [place] NOWAK FACETECTOMY & FORAMINOTOMY SINGLE VERTEBRAL SEGMENT LUMBAR 03/13/2025 12:34 PM EDT Age-related osteoporosis with current pathological fracture, vertebra(e), initial encounter for fracture (CMS/HCC V24, CMS/HCC V28) Spinal stenosis, lumbar region without neurogenic claudication Case Notes 2 C-ARMS, MICROSCOPE, metrx tubes, chest rolls, kyphoplasty kit [place] AUGMENTATION PERC VERTEBRAL INCL CAVITY CREATION 1 VERTEBRAL BODY LUMB 03/13/2025 12:34 PM EDT Age-related osteoporosis with current pathological fracture, vertebra(e), initial encounter for fracture (CMS/HCC V24, CMS/HCC V28) Spinal stenosis, lumbar region without neurogenic claudication Case Notes 2 C-ARMS, MICROSCOPE, metrx tubes, chest rolls, kyphoplasty kit PROCEDURAL ECG Routine 03/13/2025 10:41 AM EDT MR LUMBAR SPINE WO CONTRAST Routine 02/17/2025 8:36 AM EDT Lumbar pain from Last 3 Months Results * XR Lumbar Spine 2-3 Views (03/13/2025 2:36 PM EDT) Anatomical Region Laterality Modality Spine, L-spine Radio Fluoroscop y 03/14/2025 8:05 AM EDT Narrative 03/14/2025 8:06 AM EDT Fluoroscopic spot radiographs obtained during lumbar spine surgery are submitted. No radiologist consultation was requested or provided during this procedure and there is no radiologist professional charge. This report is generated for documentation purposes only. The dose for this procedure was 76.98 mGy. PQRI CPT II G9500 -------- FINAL REPORT -------- Dictated By: Andrea Estrada Dictated Date: 03/14/2025 08:05 ET Assigned Physician: Andrea Estrada Reviewed and Electronically Signed By: Andrea Estrada Signed Date: 03/14/2025 08:06 ET Workstation ID: [id number] Transcribed By: Self Edit Transcribed Date: 03/14/2025 08:05 ET Procedure Note Andrea Estrada MD - 03/14/2025 Fluoroscopic spot radiographs obtained during lumbar spine surgery aresubmitted. No radiologist consultation was requested or provided duringthis procedure and there is no radiologist professional charge. Thisreport is generated for documentation purposes only. The dose for this procedure was 76.98 mGy. PQRI CPT II G9500 -------- FINAL REPORT -------- Dictated By: Andrea Estrada Dictated Date: 03/14/2025 08:05 ET Assigned Physician: Andrea Estrada Reviewed and Electronically Signed By: Andrea Estrada Signed Date: 03/14/2025 08:06 ET Workstation ID: [id number] Transcribed By: Self Edit Transcribed Date: 03/14/2025 08:05 ET us Ade Cid MD IMG XR PROCEDURES Final Result * Tissue exam (03/13/2025 1:34 PM EDT) Final Diagnosis L1 Bone -decom pression: -NON-DIAGNOS TIC -Speicmen consist of scant marrow elements 03/14/2025 8:51 AM EDT [facility] at 0851 EDT Comment No bone is present for evaluation. 03/14/2025 8:51 AM EDT [facility] Gross Description A. Spine, Lumbar, L1 Bone: Labeled lumbar, L1 bone . Received in formalin on a Telfa pad is a less than 0.1 cm aggregate of possible pink-red soft tissue and clotted blood which is wrapped in paper and submitted in toto in one cassette (not requiring decalcificat ion), multiple pieces, x 2. MONTEZ 03/14/2025 8:51 AM EDT [facility] Disclaimer Unless otherwise specified, all tissue is 10% NB formalin fixed and paraffin embedded. 03/14/2025 8:51 AM EDT [facility] Bone Lumbar spine structure / Unknown 03/13/2025 1:34 PM EDT 03/13/2025 3:22 PM EDT us Ade Cid MD LAB PATHOLOGY ORDERABLES Final Result [facility] [address] [place] [address], * TH AN ENDOTRACHEAL(NO CHARGE) (03/13/2025 1:14 PM EDT) Narrative Nia Richter CRNA - 03/13/2025 1:14 PM EDT Nia Richter CRNA 03/13/2025 1:16 PM General Information and Staff Patient location during procedure: OR Anesthesiologist: Jakob Maldonado DO Resident/CLAM PICKER: Nia Richter CRNA Other anesthesia staff: BC Wall Performed: other anesthesia staff Performed by: Nia Richter CRNA Authorized by: Jakob Maldonado DO Intubation Airway not difficult Reason: elective Final Airway Details Successful airway: ETT Cuffed: yes Successful intubation technique: direct laryngoscopy Endotracheal tube insertion site: oral Blade: Janice Blade size: #3 ETT size (mm): 7.5 Cormack-Lehane Classification: grade IIb - view of arytenoids or posterior of glottis only Placement verified by: chest auscultation and capnometry Measured from: teeth ETT to teeth (cm): 22 Final airway type: endotracheal airway Indications and Patient Condition Indications for airway management: anesthesia Preoxygenated: yesSoft Tissue Damage: No Dentition Unchanged: Yes Patient position: neutral Mask difficulty assessment: 1 - vent by mask us Jakob Maldonado DO ANESTHESIA ORDERABLES Final Res ult * ECG 12 lead - Procedural (No Charge) (03/13/2025 10:41 AM EDT) Ventricular Rate ECG 76 BPM GEMUSE Atrial Rate 76 BPM GEMUSE P-R Interval 146 ms GEMUSE QRS Duration 80 ms GEMUSE Q-T Interval 398 ms GEMUSE QTc 447 ms GEMUSE P Wave Randall -13 degrees GEMUSE R Randall -20 degrees GEMUSE T Randall 29 degrees GEMUSE ECG Interpretation Normal sinus rhythm Moderate voltage criteria for LVH, may be normal variant Borderline ECG When compared with ECG of 08-MAR-2015 10:13, Vent. rate has decreased BY 46 BPM T wave amplitude has increased in Anterior leads Confirmed by VIOLET NOEL ([id number]) on 03/13/2025 5:46:06 PM GEMUSE 03/13/2025 10:4 1 AM EDT 03/13/2025 5:46 PM EDT us Ade Cid MD ECG ORDERABLES Final Result GEMUSE * MR Lumbar Spine wo Contrast (02/17/2025 8:36 AM EDT) Anatomical Region Laterality Modality L-spine, Spine Magnetic Resonan ce 02/18/2025 5:55 PM EDT Impressions 02/18/2025 6:20 PM EDT Acute L1 superior endplate compression fracture with approximately 20% height loss. No retropulsion of bone towards the spinal canal or high-grade spinal canal stenosis. Small right paracentral extrusion at T12-L1 and extending cranial posterior to T12 and resulting in mass effect upon the descending right L1 nerve in the right T12 lateral recess. Degenerative changes throughout the lumbar spine with moderate spinal canal stenosis and moderate left foraminal stenosis at L4-5. -------- FINAL REPORT -------- Dictated By: ALBER MERCEDES Dictated Date: 02/18/2025 17:55 ET Assigned Physician: ALBER MERCEDES Reviewed and Electronically Signed By: ALBER MERCEDES Signed Date: 02/18/2025 18:20 ET Workstation ID: [id number] Transcribed By: Self Edit Transcribed Date: 02/18/2025 17:55 ET Narrative 02/18/2025 6:20 PM EDT PROCEDURE: Lumbar spine MRI INDICATION: Pain TECHNIQUE: Multiplanar, multisequence MRI of the Lumbar spine Without contrast. COMPARISON: No priors available. FINDINGS: Mild anterolisthesis at L4-5 and L5-S1 related to degenerative facet arthritis. Mild retrolisthesis at L1-2 and L2-3, also likely degenerative. Dextroconvex lower lumbar scoliosis with levoconvex thoracolumbar scoliosis. Acute L1 superior endplate compression fracture with approximately 20% height loss. No significant retropulsion of bone towards the spinal canal. No suspicious marrow replacing lesion. Degenerative loss of normal disc height and signal throughout the lumbar spine with associated degenerative discogenic endplate changes. Lower lumbar predominant degenerative facet arthritis, most pronounced on the left at L3-4 and L4-5 as well as on the right at L4-5 and L5-S1. Conus medullaris is normal and terminates at L1. No epidural collection or mass is seen within the spinal canal. Paraspinal muscles are within normal limits. Right renal cysts. Findings by level: T12-L1: Right paracentral extrusion extends cranial posterior to the T12 vertebral body by approximately 17 mm and results in mass effect upon the descending right L1 nerve in the right T12 lateral recess. No spinal canal or foraminal stenosis. L1-2: Posterior disc osteophyte complex and bilateral facet arthropathy with ligamentum flavum thickening. Mild left and no right foraminal stenosis. No spinal canal stenosis. L2-3: Diffuse disc bulge with endplate spurring. Bilateral facet arthropathy and ligamentum flavum thickening. Mild spinal canal stenosis with effacement of the left subarticular zone. Mild right and moderate left foraminal stenosis. L3-4: Diffuse disc bulge and bilateral facet arthropathy. No foraminal or spinal canal stenosis. L4-5: Anterolisthesis with posterior disc uncovering. Bilateral facet arthropathy and ligamentum flavum thickening. Moderate spinal canal stenosis. Moderate left and no right foraminal stenosis. L5-S1: Bilateral facet arthropathy with ligamentum flavum thickening. Diffuse disc bulge with endplate spurring. Moderate right and mild left foraminal stenosis. No spinal canal stenosis. Procedure Note Alber Mercedes MD - 02/18/2025 PROCEDURE: Lumbar spine MRI INDICATION: Pain TECHNIQUE: Multiplanar, multisequence MRI of the Lumbar spine Withoutcontrast. COMPARISON: No priors available. FINDINGS: Mild anterolisthesis at L4-5 and L5-S1 related to degenerative facetarthritis. Mild retrolisthesis at L1-2 and L2-3, also likelydegenerative. Dextroconvex lower lumbar scoliosis with levoconvex thoracolumbarscoliosis. Acute L1 superior endplate compression fracture with approximately 20%height loss. No significant retropulsion of bone towards the spinalcanal. No suspicious marrow replacing lesion. Degenerative loss of normal disc height and signal throughout the lumbarspine with associated degenerative discogenic endplate changes. Lower lumbar predominant degenerative facet arthritis, most pronounced onthe left at L3-4 and L4-5 as well as on the right at L4-5 and L5-S1. Conus medullaris is normal and terminates at L1. No epidural collectionor mass is seen within the spinal canal. Paraspinal muscles are within normal limits. Right renal cysts. Findings by level: T12-L1: Right paracentral extrusion extends cranial posterior to the [id number] body by approximately 17 mm and results in mass effect upon thedescending right L1 nerve in the right T12 lateral recess. No spinalcanal or foraminal stenosis. L1-2: Posterior disc osteophyte complex and bilateral facet arthropathywith ligamentum flavum thickening. Mild left and no right foraminalstenosis. No spinal canal stenosis. L2-3: Diffuse disc bulge with endplate spurring. Bilateral facetarthropathy and ligamentum flavum thickening. Mild spinal canal stenosiswith effacement of the left subarticular zone. Mild right and moderateleft foraminal stenosis. L3-4: Diffuse disc bulge and bilateral facet arthropathy. No foraminal orspinal canal stenosis. L4-5: Anterolisthesis with posterior disc uncovering. Bilateral facetarthropathy and ligamentum flavum thickening. Moderate spinal canalstenosis. Moderate left and no right foraminal stenosis. L5-S1: Bilateral facet arthropathy with ligamentum flavum thickening.Diffuse disc bulge with endplate spurring. Moderate right and mild leftforaminal stenosis. No spinal canal stenosis. IMPRESSION: Acute L1 superior endplate compression fracture with approximately 20%height loss. No retropulsion of bone towards the spinal canal orhigh-grade spinal canal stenosis. Small right paracentral extrusion at T12-L1 and extending cranialposterior to T12 and resulting in mass effect upon the descending right [id number] in the right T12 lateral recess. Degenerative changes throughout the lumbar spine with moderate spinalcanal stenosis and moderate left foraminal stenosis at L4-5. -------- FINAL REPORT -------- Dictated By: ALBER MERCEDES Dictated Date: 02/18/2025 17:55 ET Assigned Physician: ALBER MERCEDES Reviewed and Electronically Signed By: ALBER MERCEDES Signed Date: 02/18/2025 18:20 ET Workstation ID: [id number] Transcribed By: Self Edit Transcribed Date: 02/18/2025 17:55 ET Victor Hugo Young MD IMG MRI PROCEDURES Final Resul t from Last 3 Months Insurance [employer] Advance Directives * Full Code - Default (Latest Code Status on File) Date Activated Date Inactivated Comments 03/13/2025 10:28 AM 03/13/2025 9:53 PM This is o rder is used when code status has not been discussed with the patient, or code status is otherwise unknown/unconfirmed To update the patient's code status, place a code status order. Do not modify or discontinue any currently active code status orders. Care Teams Balance And Hairspring Assembler Relationship Specialty Start Date End Date Victor Hugo Young MD [address] [place] [id number] PCP - General Internal Medicine 02/17/25
--- OUTSIDE RECORDS SUMMARY | 2025-04-16 15:24 | XMS_ITS | Clinical Summary ---
Author Organization [facility] Address [address] [place] [phone] Phone Care Team Providers Care Catalyst Concentration Operator Name Role Phone Victor Hugo Young MD Primary Care Provider [phone] Social History Tobacco Use Types Packs/Day Years Used Date Smoking Tobacco: Never Assessed Education Answer Date Recorded Are you interested in more education? Not on denis e 09/17/2022 Are you concerned about learning? Not on file 09/17/2022 No 09/17/2022 No 09/17/2022 Digital Access Answer Date Recorded No 10/16/2022 No 10/16/2022 No 10/16/2022 Reliable internet access at home? Not on file 10/16/2022 Device with a working camera? Not on file Comments Unknown Sex and Gender Information Value Date Recorded Sex Assigned at Female 02/16/2021 10:48 AM EDT Legal Sex Female 10:33 AM EDT Gender Identity Female 02/16/2021 10:48 AM EDT Sexual Orientation Straight 02/16/2021 10 :48 AM EDT Plan of Treatment Health Maintenance Due Date Last Done Comments LIPID PANEL 1945 DEPRESSION SCREENING 1958 SMOKING Hx and SMOKELESS TOBACCO SCREENING 1959 HEPATITIS C SCREENING 02/21/1964 PNEUMOCOCCAL VACCINES (50+ years) (1 of 1 - PCV) 02/21/1996 ZOSTER VACCINES (1 of 2) 02/21/1996 OSTEOPOROSIS SCREENING INITIAL (ONE-TIME) 2011 RSV VACCINE (1 - 1-dose 75+ series) 2021 Adult Td,Tdap Booster 12/13/2022 12/13/2012 INFLUENZA VACCINE (#1) 2024 8, 04/05/2017, 05/07/2014, Additional history exists COVID-19 VACCINE ( season) 2025 03/15/2021, 08/24/2020, 07/27/2020 HEPATITIS A VACCINES Aged Out No long er eligible based on patient's age to complete this topic HIB VACCINES Aged Out No longer eligi ble based on patient's age to complete this topic MENINGOCOCCAL VACCINES (ACWY) Aged Out No longer eligible based on patient's age to complete this topic MENINGOCOCCAL VACCINES (B) Aged Out N o longer eligible based on patient's age to complete this topic Medical Devices Not on file Insurance MEDICARE REPLACEMENT [place] [id number] MEDICARE REPLACEMENT MEDICARE REPLACEMENT Member Subscriber Plan / Payer (Ef fective 2020-Present) Name:Ernesto Edward Relation to Subscriber:Self Name:ERNESTO EDWARD Payer ID:[id number] (NAIC) Type:Medicare Address: [place] [id number] MEDICARE REPLACEMENT Member Subscriber Plan / Payer (Ef fective 2020-Present) Name:Ernesto Edward Relation to Subscriber:Self Name:ERNESTO EDWARD Payer ID:[id number] (NAIC) Type:Medicare Address: [place] [id number] MEDICARE REPLACEMENT MEDICARE REPLACEMENT MEDICARE REPLACEMENT MEDICARE REPLACEMENT Member Subscriber Plan / Payer (Ef fective 2020-) Name:Ernesto Edward Relation to Subscriber:Self Name:ERNESTO EDWARD Payer ID:[id number] (NAIC) Type:Medicare Address: [place] [id number] MEDICARE REPLACEMENT Care Teams Catalyst Concentration Operator Relationship Specialty Start Date End Date Victor Hugo Young MD [address] [place] [id number] PCP - General Internal Medicine 02/16/21 Additional Source Comments The information contained in this document represents components of the legal health record. It is not the complete legal health record.[facility]
--- OUTSIDE RECORDS SUMMARY | 2025-04-16 15:24 | XMS_ITS ---
Author Organization [facility] [place] Care Team Providers Care Director Of Perioperative Services Name Role Phone Abiel Bridges Unavailable Unavailable Allergies and adverse reactions Code CodeSystem Substance Reaction Severity StartDate Concern Status 5487 RXNORM hydroCHLOROthiazide Unknown 01/28/2023 a ctive 52826 RXNORM Meloxicam Unknown 01/28/2023 active 52293 RXNORM Triamterene Unknown 01/28/2023 active Care Team Name Role Address Phone Organization Dates Fabernardo Bridges [address] [address], [place], [place], [facility], [place] (Office): : : [facility] [place] 01/28/2023 - 02/23/2023 Immunizations Immunization Status Vaccine Details Vaccine Code CodeSystem Date Notes TB 1 Step Mantoux (PPD) completed tuberculin skin test; purified protein derivative solution, intradermal lotNumber: [id number] expiry: 01/21/2024 Mfg: par pharmaceutical Given 0.1 ml Right Forearm intradermally 96 CVX created date: 02/05/2023 consent date: 02/05/2023 administer ed date: 02/05/2023 TB 1 Step Mantoux (PPD) completed tuberculin skin test; purified protein derivative solution, intradermal lotNumber: [id number] expiry: 01/21/2024 Mfg: Par Pharmacuautical Given 0.1 ml Left Forearm intradermally 96 CVX created date: 01/29/2023 consent date: 01/29/2023 administer ed date: 01/29/2023 Educated by kim hernandez on 01/29/2023 COVID-19 Vaccine Dose 1 completed unknown vaccine or immune globulin 999 CVX created date: 01/30/2023 administer ed date: 07/27/2020 COVID-19 Vaccine Dose 2 completed unknown vaccine or immune globulin Mfg: moderna 999 CVX created date: 01/30/2023 administer ed date: 08/24/2020 COVID-19 Vaccine Additional Dose/Booster completed unknown vaccine or immune globulin Mfg: moderna 999 CVX created date: 01/30/2023 administer ed date: 02/25/2022 COVID-19 Vaccine Additional Dose/Booster completed unknown vaccine or immune globulin Mfg: moderna 999 CVX created date: 01/30/2023 administer ed date: 09/14/2021 COVID-19 Vaccine Additional Dose/Booster completed unknown vaccine or immune globulin Mfg: Moderna 999 CVX created date: 01/30/2023 administer ed date: 03/15/2021 Influenza Fluzone High Dose 0.7ML dose (CVX 197) completed Influenza, high-dose, split virus, quadrivalent, injectable, preservative free lotNumber: [id number] expiry: 11/17/2023 Mfg: Fluzone HD Given 0.7 ml Right Deltoid intramuscularly 197 CVX created date: 02/23/2023 consent date: 02/23/2023 administer ed date: 02/22/2023 Influenza Fluzone High Dose 0.7ML dose (CVX 197) completed Influenza, high-dose, split virus, quadrivalent, injectable, preservative free 197 CVX created date: 01/30/2023 administer ed date: 03/14/2022 Mental Status Section Date Assessment Total Score Description 02/23/2023 CAM 0 No delirium ind icated 02/02/2023 BIMS 15 cognitively int act CAM 0 No delirium ind icated PHQ-9 03 minimal depress ion Insurance Providers Problems Problem # Description Date of onset Resolved Date Code CodeSystem Concern Status 1 DIAPHRAGMATIC 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 OR GANGRENE 01/28/[address] active 2 ELEVATED WHITE BLOOD CELL COUNT, UNSPECIFIED 01/28/[address] active 3 ENCOUNTER FOR OTHER ORTHOPEDIC AFTERCARE 01/28/[address] active 4 ESSENTIAL (PRIMARY) HYPERTENSION 01/28/[address] active 5 HEREDITARY AND IDIOPATHIC NEUROPATHY, UNSPECIFIED 01/28/[address] active 6 HYPERLIPIDEMIA, UNSPECIFIED 01/28/[address] active 7 HYPOTHYROIDISM, UNSPECIFIED 01/28/[address] active 8 IRRITABLE BOWEL SYNDROME, UNSPECIFIED 01/28/[address] active 9 OTHER SPECIFIED DISORDERS OF BONE DENSITY AND STRUCTURE, UNSPECIFIED SITE 01/28/[address] active 10 SPINAL STENOSIS, SITE UNSPECIFIED 01/28/[address] active 11 UNSPECIFIED FALL, SUBSEQUENT ENCOUNTER 01/28/[address] active 12 UNSPECIFIED FRACTURE OF UNSPECIFIED FEMUR, SUBSEQUENT ENCOUNTER FOR CLOSED FRACTURE WITH ROUTINE HEALING 01/28/[address] active 13 UNSPECIFIED MACULAR DEGENERATION 01/28/[address] active 14 UNSPECIFIED OSTEOARTHRITIS, UNSPECIFIED SITE 01/28/[address] active Reason for Referral No Reasons for Referral Entered Social History Social History Observation Description Start Date End Date Code Code System Current Smoking Status Tobacco smoking consumption unknown 740992481 SNOMED CT Sex Assigned At Female 1945 05101-4 [facility] Gender Identity Sexual Orientation Vital Signs Code Code System Vitals Name Values and Units Timing Information 25825-1 LOINC O2 % BldC Oximetry Value=98.0 Units= % 02/23/2023 85355-0 LOINC Pain Level Value=0.0 02/23/2023 62393-4 LOINC Weight Cxrik=662.0 Units=Lbs 05/2022 9279-1 LOINC Respiratory Rate Value=18.0 Units=/m in 02/19/2023 8462-4 LOINC Blood Pressure-Diastolic Value=70 Un its=mmHg 02/19/2023 8480-6 LOINC Blood Pressure-Systolic Tctoy=473 Un its=mmHg 02/19/2023 8310-5 [facility] Body Temperature Value=98.0 Units= F 02/19/2023 8867-4 [facility] Heart rate Value=70.0 Units=/min 05/2022 8302-2 [facility] Height Value=66.0 Units=Inches 01/28/2023
== END 2025-04-16 12:21 | disposition home or self-care (01) ==
LOC: HO.MAMMO 12:20
PROVIDERS: PCP Internal Medicine; Visit Provider Internal Medicine
DX: Z12.31 Encounter for screening mammogram for malignant neoplasm of breast (principal)
CPT/HCPCS: 77063; 77067

== ENCOUNTER → 2025-04-16 12:30 | Outpatient (BNV) | payer MEDICARE, SELFPAY | PROVIDERS: PCP Internal Medicine; Visit Provider Radiology Body Imaging | DX: Z12.31 Encounter for screening mammogram for malignant neoplasm of breast (principal) | CPT/HCPCS: 77063; 77067 ==